=== PATIENT | female | born 1960 | race Caucasian/White ===

== ENCOUNTER 2018-06-08 13:32 | Emergency (ER) | payer OTHER ==
[2018-06-08] MEDS ORDERED: Ibuprofen 600 MG TAB ONE (14:11)
--- NOTE | 2018-06-08 15:44 | RAD ---
THREE VIEWS RIGHT SHOULDER: DATE: 06/08/2018. HISTORY: Post fall, sensation of dislocation of shoulder. FINDINGS: There is mild right acromioclavicular joint osteoarthritis. No fracture or dislocation is seen invol ving the right shoulder. IMPRESSION: No acute osseous abnormality. POS: [facility]
== END 2018-06-08 14:35 | disposition home or self-care (01) ==
LOC: SCSER 13:32
DX: M25.511 Pain in right shoulder (principal)